=== PATIENT | female | born 2000 | race Caucasian/White ===

== ENCOUNTER 2022-07-11 08:49 | Outpatient (CLI) | payer BC, MEDICAID ==
[~2022-07-11] VITALS: Ht 160.1 cm; Wt 89.9 kg
[~2022-07-11 08:49] MED LIST: ADDERALL5 MG PO; AIMOVIG AU70 MG/1 ML SQ; CAMBIA50 MG PO; IMITREX100 MG PO; KEPPRA 500MG500 MG PO; NEURONTIN800 MG/TAB PO; PROAIR HFA0.09 MG/AC IH; SEROQUEL400 MG PO; ZOFRAN 4MG T4 MG/TAB PO
[2022-07-11 09:42] VITALS: BP 114/67; PULSE 72; TEMP 97.1
--- NOTE | 2022-07-11 11:45 | NUR ---
DC instructions reviewed with pt, she expresses understanding. Pt is steady on feet to restroom. Denies dizziness or other complaints. She is escorted out to entrance to meet her step father.
== END 2022-07-11 11:45 | disposition home or self-care (01) ==
LOC: COL.CAR 08:49
DX: R55 Syncope and collapse (principal); R42 Dizziness and giddiness; G43.909 Migraine, unspecified, not intractable, without status migrainosus; R00.0 Tachycardia, unspecified; R00.2 Palpitations; R07.89 Other chest pain; F41.1 Generalized anxiety disorder; Z79.899 Other long term (current) drug therapy